=== PATIENT | female | born 1990 | race Caucasian/White ===

== ENCOUNTER 2020-12-01 19:44 | Emergency (ER) | payer MEDICAID ==
[~2020-12-01] VITALS: Ht 175.3 cm; Wt 124.7 kg
--- NOTE | 2020-12-01 19:57 | NUR ---
Dr. Michael at bedside for MSE.
[2020-12-01] MEDS ORDERED: OXYC-128 PO (20:59)
[2020-12-01] MEDS ORDERED: OXYCODONE/APAP 5-325 MG TABLET PO ONE (21:15)
[2020-12-01] MEDS ORDERED: OXYCODONE/APAP 5-325 MG TABLET ONE (21:25)
--- NOTE | 2020-12-01 21:30 | NUR ---
Patient discharged to home in stable condition. Written and verbal after care instructions given. Patient verbalizes understanding of instructions. Stressed follow up or return to ER for worsening s/s.
[2020-12-01 21:31] VITALS: BP 138/90
== END 2020-12-01 21:31 | disposition home or self-care (01) ==
LOC: ER 19:45
DX: S16.1XXA Strain of muscle, fascia and tendon at neck level, initial encounter (principal); S93.401A Sprain of unspecified ligament of right ankle, initial encounter; S80.11XA Contusion of right lower leg, initial encounter; V43.52XA Car driver injured in collision with other type car in traffic accident, initial encounter; Y92.411 Interstate highway as the place of occurrence of the external cause; R03.0 Elevated blood-pressure reading, without diagnosis of hypertension
CPT/HCPCS: 71045; A4663